=== PATIENT | male | born 1975 | race Hispanic/Latino ===

== ENCOUNTER 2017-11-21 11:26 | Emergency (ER) | payer OTHER ==
[2017-11-21 11:32] VITALS: BP 131/94; PULSE 64; RESP 18; TEMP 97; O2SAT 99
--- NOTE | 2017-11-21 12:24 | ED PDOC ---
HPI: Skin/Bite Injury Time Seen by Provider: 11/21/17 12:15 Chief Complaint (Nursing): Abnormal Skin Integrity Chief Complaint (Provider): Skin Laceration History Per: Patient History/Exam Limitations: no limitations Additional Complaint(s): 42 year old male presents to the emergency department with a complaint of a left thumb skin laceration prior to arrival. Pt cut finger with "clean knife" at work. Denies fever or chills. Tetanus shot NOT up to date. Past Medical History Reviewed: Historical Data, Nursing Documentation, Vital Signs Vital Signs: Last Vital Signs Temp 97 F L 11/21/17 11:29 Pulse 64 11/21/17 11:29 Resp 18 11/21/17 11:29 BP 131/94 H 11/21/17 11:29 Pulse Ox 99 11/21/17 22:23 - Medical History PMH: No Chronic Diseases Denies: Chronic Kidney Disease - Surgical History Surgical History: No Surg Hx - Family History Family History: States: Unknown Family Hx - Living Arrangements Living Arrangements: Other - Social History Current smoker - smoking cessation education provided: No Alcohol: Social Drugs: Denies - Allergies Allergies/Adverse Reactions: Allergies Allergy/AdvReac Type Severity Reaction Status Date / Time No Known Allergies Allergy Verified 11/21/17 11:31 Review of Systems ROS Statement: Except As Marked, All Systems Reviewed And Found Negative (As per HPI, otherwise negative) Constitutional: Negative for: Fever, Chills Skin: Positive for: Other (Laceration to the left thumb) Physical Exam - Reviewed Nursing Documentation Reviewed: Yes Vital Signs Reviewed: Yes - Physical Exam Appears: Positive for: Non-toxic, No Acute Distress Head Exam: Positive for: ATRAUMATIC, NORMOCEPHALIC Skin: Positive for: Normal Color, Warm, Dry Extremity: Positive for: Normal ROM, Other (2 cm left 1st digit laceration, distal to the IP joint) Neurologic/Psych: Positive for: Alert, Oriented (x3) - ECG O2 Sat by Pulse Oximetry: 99 (RA) Pulse Ox Interpretation: Normal Medical Decision Making Medical Decision Making: Time: 1215 Initial impression: Skin Laceration Initial plan: --Pt did not want tetanus. Discussed risk/benefit with patient and he demonstrates understanding. --Also discussed wound closure with patient and patient does not want suturing at this time. --TELFA dressing with antibiotic ointment. Time: 1224 Upon provider reevaluation patient is feeling better, is medically stable, and requires no further treatment in the ED at this time. Patient will be discharged home. Counseling was provided and all questions were answered regarding diagnosis. There is agreement to discharge plan. Return if symptoms persist or worsen. Clinical Impression: Finger Laceration Scribe Attestation: Documented by Riana Gandara, acting as a scribe for Luh Tovar PA-C Provider Scribe Attestation: All medical record entries made by the Scribe were at my direction and personally dictated by me. I have reviewed the chart and agree that the record accurately reflects my personal performance of the history, physical exam, medical decision making, and the department course for this patient. I have also personally directed, reviewed, and agree with the discharge instructions and disposition. Disposition - Clinical Impression Clinical Impression: Finger laceration - Patient ED Disposition Is Patient to be Admitted: No Counseled Patient/Family Regarding: Diagnosis - Disposition Disposition: Routine/Home Disposition Time: 12:24 Condition: GOOD Instructions: Laceration Without Closure (ED) Forms: [employer] (Sami)
--- NOTE | 2017-11-21 12:30 | ED PDOC ---
HPI: Skin/Bite Injury Time Seen by Provider: 11/21/17 12:15 Chief Complaint (Nursing): Abnormal Skin Integrity Past Medical History Vital Signs: Last Vital Signs Temp 97 F L 11/21/17 11:29 Pulse 64 11/21/17 11:29 Resp 18 11/21/17 11:29 BP 131/94 H 11/21/17 11:29 Pulse Ox 99 11/21/17 12:26 - Medical History PMH: Denies: Chronic Kidney Disease - Allergies Allergies/Adverse Reactions: Allergies Allergy/AdvReac Type Severity Reaction Status Date / Time No Known Allergies Allergy Verified 11/21/17 11:31 Review of Systems ROS Statement: Except As Marked, All Systems Reviewed And Found Negative (As per HPI, otherwise negative) - ECG O2 Sat by Pulse Oximetry: 99 (RA) Pulse Ox Interpretation: Normal Medical Decision Making Medical Decision Making: Time: 1215 Initial impression: Skin Laceration Initial plan: -- Time: 1224 Upon provider reevaluation patient is feeling better, is medically stable, and requires no further treatment in the ED at this time. Patient will be discharged home. Counseling was provided and all questions were answered regarding diagnosis. There is agreement to discharge plan. Return if symptoms persist or worsen. Clinical Impression: Finger Laceration Scribe Attestation: Documented by Riana Gandara, acting as a scribe for Luh Tovar PA-C Provider Scribe Attestation: All medical record entries made by the Scribe were at my direction and personally dictated by me. I have reviewed the chart and agree that the record accurately reflects my personal performance of the history, physical exam, medical decision making, and the department course for this patient. I have also personally directed, reviewed, and agree with the discharge instructions and disposition. Disposition - Clinical Impression Clinical Impression: Finger laceration Counseled Patient/Family Regarding: Diagnosis - Disposition Disposition: Routine/Home Disposition Time: 12:24 Condition: STABLE Instructions: Laceration Without Closure (ED) Forms: [facility] (Chinese)
== END 2017-11-21 12:37 | disposition home or self-care (01) ==
LOC: H.ER 11:26
DX: S61.012A Laceration without foreign body of left thumb without damage to nail, initial encounter (principal); W26.0XXA Contact with knife, initial encounter; Y99.0 Civilian activity done for income or pay